=== PATIENT | male | born 1980 | race Caucasian/White ===

== ENCOUNTER 2017-09-24 11:14 | Emergency (ER) | payer MEDICAID ==
[2017-09-24] MEDS ORDERED: HYDROcodone/Acetaminophen 10/325 mg Tablet ONE (13:04)
[2017-09-24] MEDS ORDERED: Ondansetron ODT 4 MG TAB ONE (13:04)
[2017-09-24] MEDS ORDERED: Indomethacin 25 mg Capsule ONE (13:04)
[2017-09-24] MEDS ORDERED: predniSONE 20 MG TAB ONE (13:04)
--- NOTE | 2017-09-24 13:10 | RAD ---
4 VIEWS LEFT ELBOW: Date: 09/24/17 HISTORY: Left elbow pain and swelling. FINDINGS: There is no evidence of a fracture, dislocation, or other osseous abnormality. There is mild subcuta neous soft tissue swelling seen at the medial aspect of the elbow. There is probable also minimal hidalgo bcutaneous soft tissue swelling posteriorly. IMPRESSION: Mild subcutaneous soft tissue swelling left elbow, but there is no fracture or dislocation seen. POS: [facility]
== END 2017-09-24 13:25 | disposition home or self-care (01) ==
LOC: MADERS 11:14
DX: M10.9 Gout, unspecified (principal); F39 Unspecified mood [affective] disorder; Z87.891 Personal history of nicotine dependence; Z79.899 Other long term (current) drug therapy
CPT/HCPCS: J7506; Q0162

== ENCOUNTER 2019-05-16 12:39 | Emergency (ER) | payer MEDICAID, MEDICARE ==
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
== END 2019-05-16 14:15 | disposition home or self-care (01) ==
LOC: MADERS 12:39
DX: S13.9XXA Sprain of joints and ligaments of unspecified parts of neck, initial encounter (principal); Z87.891 Personal history of nicotine dependence; V49.9XXA Car occupant (driver) (passenger) injured in unspecified traffic accident, initial encounter
CPT/HCPCS: 72125

== ENCOUNTER 2019-07-09 12:04 | Emergency (ER) | payer MEDICARE | END 2019-07-09 14:55 | disposition home or self-care (01) | LOC: MADERS 12:04 | DX: M76.62 Achilles tendinitis, left leg (principal); F17.210 Nicotine dependence, cigarettes, uncomplicated; F41.9 Anxiety disorder, unspecified | CPT/HCPCS: 99283 ==